=== PATIENT | female | born 1970 | race Hispanic/Latino ===

== ENCOUNTER 2023-05-10 07:45 | Day surgery (SDC) | payer OTHER ==
[~2023-05-10] VITALS: Ht 149.9 cm; Wt 95.3 kg
[~2023-05-10 07:45] MED LIST: AMLODIPINE BESYL5 MG PO; COZAAR100 MG PO; OMEPRAZOLE DR40 MG PO
[2023-05-10 10:18] VITALS: BP 131/73
== END 2023-05-10 10:35 | disposition home or self-care (01) | DRG 951 ==
LOC: ENDO 07:45 → ORM 09:00 → ENDO 10:35 → ORM 13:55 → ENDO 13:55 → ORM 14:30 → ENDO 14:30
PROVIDERS: ATTEND Internal Medicine Gastroenterology
PROC: 0DJD8ZZ Inspection of Lower Intestinal Tract, Via Natural or Artificial Opening Endoscopic (ICD-10-PCS; principal; 2023-05-10)
PROC: 0DB98ZX Excision of Duodenum, Via Natural or Artificial Opening Endoscopic, Diagnostic (ICD-10-PCS; 2023-05-10)
PROC: 0DB78ZX Excision of Stomach, Pylorus, Via Natural or Artificial Opening Endoscopic, Diagnostic (ICD-10-PCS; 2023-05-10)
DX: Z12.11 Encounter for screening for malignant neoplasm of colon (principal); K57.30 Diverticulosis of large intestine without perforation or abscess without bleeding; K64.8 Other hemorrhoids; K29.70 Gastritis, unspecified, without bleeding; K29.80 Duodenitis without bleeding; K31.9 Disease of stomach and duodenum, unspecified; Z80.0 Family history of malignant neoplasm of digestive organs